=== PATIENT | female | born 1970 | race Two or more races ===

== ENCOUNTER 2021-10-10 17:01 | Emergency (ER) | payer OTHER ==
[~2021-10-10] VITALS: Ht 154.9 cm; Wt 90.7 kg
[2021-10-10] MEDS ORDERED: ZESTRIL10 M1 (17:19)
== END 2021-10-10 20:21 | disposition home or self-care (01) ==
LOC: ER 17:01
DX: M77.52 Other enthesopathy of left foot and ankle (principal); M25.572 Pain in left ankle and joints of left foot; I10 Essential (primary) hypertension